=== PATIENT | male | born 1995 ===

== ENCOUNTER 2018-01-02 09:54 | Emergency (ER) | payer OTHER ==
[2018-01-02] MEDS ORDERED: NS 0.9% 1000 ML* 1,000 ML IV ONE (10:23)
[2018-01-02 10:35] LABS: ABS Basophils 0 10^3/ul (0-0.2); ABS Eosinophils 0.2 10^3/ul (0-0.6); ABS Lymphocytes 1.6 10^3/ul (1.0-4.8); ABS Monocytes 0.6 10^3/ul (0-0.8); ABS Nucleated RBC 0 10^3/ul; Eosinophil % 3.4 % (0-6); Hematocrit 40 % (42-52); Hemoglobin 13.6 g/dl (14.0-18.0); Mean Corpuscular HGB Conc 34 g/dl (31-36); Mean Corpuscular Hemoglobin 31 pg (27-31); Mean Corpuscular Volume 90 fL (80-94); Mean Platelet Volume 8.1 um3 (7.4-10.4); Nucleated Red Blood Cells % 0.1; Platelet Count 192 10^3/ul (150-450); Red Blood Count 4.39 10^6/ul (4.0-5.4); Red Cell Distribution Width 13 % (10.5-15); White Blood Count 5.4 10^3/ul (3.5-10.8)
[2018-01-02 10:43] LABS: INR 0.98 (0.77-1.02)
[2018-01-02 10:54] LABS: EGFR Non-African American 101.3 (>60)
[2018-01-02] MEDS ORDERED: Iohexol 300* (CONTRAST) 10 ML SDV IV ONE (11:08)
--- NOTE | 2018-01-02 12:00 | RAD ---
INDICATION: Abdominal pain. Acute appendicitis COMPARISON: None TECHNIQUE: Axial source images were obtained from the hemidiaphragms to the symphysis pubis following administration of oral and intravenous contrast. 100 mL Omnipaque 300 was utilized. Coronal and sagittal reconstructed images were acquired. Lung bases: The lung bases are clear. Liver: The liver is normal in size. There are no masses. There is no ductal dilatation. Gallbladder: There are no calcified gallstones. There is no evidence of wall thickening or pericholecystic fluid. Spleen: The spleen is normal in size. There are no masses. Pancreas: There is no focal pancreatic mass or ductal dilatation. Adrenal glands: There is no evidence of adrenal mass. Kidneys: The kidneys are normal in size and position. There are prompt nephrograms and there is prompt excretion bilaterally. There are no renal parenchymal masses. There is no evidence of nephrolithiasis. Adenopathy: There is no evidence of adenopathy by size criteria. Fluid collections: There are no free or localized fluid collections. Vessels:There are no significant atherosclerotic changes involving the aorta. There is no focal aneurysm. The iliac vessels are normal in caliber. The IVC appears normal. GI tract: The upper GI tract to include the terminal ileum is normal. The ileocecal valve is normal. There is limited evaluation of the appendix but there are no CT abnormalities. The colon appears abnormal. There is a short segment of mural thickening involving the nadiya ascending colon and there is long segment mural thickening of the descending colon. Consider infectious and inflammatory colitides. Pelvic organs: The prostate and seminal vesicles appear normal Bladder: There are no bladder masses. Abdominal and pelvic soft tissues: The extraperitoneal abdominal and pelvic soft tissues appear normal.. Osseous structures: There are no acute osseous findings. Other: None IMPRESSION: NO CT FINDINGS SPECIFIC FOR ACUTE APPENDICITIS. SUGGEST SURGICAL REFERRAL IF THIS REMAINS A DIAGNOSTIC CONSIDERATION. ABNORMAL APPEARANCE OF THE COLON WITH AREAS OF LONG SEGMENT MURAL THICKENING. CONSIDER INFECTIOUS OR INFLAMMATORY COLITIS.
[2018-01-02 12:29] LABS: Urine Appearance Clear; Urine Blood Negative (Negative); Urine Color Yellow; Urine Ketones Negative (Negative); Urine Protein Negative (Negative); Urine Specific Gravity 1.021 (1.010-1.030); Urine Urobilinogen Negative (Negative)
[2018-01-02 12:51] VITALS: BP 114/63
[2018-01-02] MEDS ORDERED: Omeprazole CAP* 20 MG PO ONE (13:09)
--- NOTE | 2018-01-02 14:24 | ED ---
Benny Estrella Gabriel, scribed for Shankar Stone on 01/02/18 at 1016 . Abdominal Pain/Male - HPI Summary HPI Summary: This patient is a 22 year old M presenting to [facility] accompanied by his partner with a chief complaint of ABD pain that began at 0830 this morning. The patient rates the pain 5/10 in severity. Pt woke up at 0830 was constipated but strained , left the bathroom, and a short time after other symptoms began. Patient reports light headedness, green diarrhea, and intermittent nausea. Patient denies fever. - History of Current Complaint Chief Complaint: EDAbdPain Stated Complaint: ABD PAIN Time Seen by Provider: 01/02/18 10:00 Hx Obtained From: Patient Onset/Duration: Lasting Hours, Still Present Timing: Constant, Intermittent Severity Initially: Moderate Severity Currently: Moderate Pain Intensity: 5 Pain Scale Used: 0-10 Numeric Location: Diffuse Radiates: No Associated Signs And Symptoms: Positive: Constipation, Nausea, Diarrhea. Negative: Fever - Allergies/Home Medications Allergies/Adverse Reactions: Allergies Allergy/AdvReac Type Severity Reaction Status Date / Time No Known Allergies Allergy Verified 01/02/18 09:57 Home Medications: Home Medications Famotidine TAB* [Pepcid 20 MG TAB*] 20 mg PO DAILY 01/02/18 [History Confirmed 01/02/18] PMH/Surg Hx/FS Hx/Imm Hx Cardiovascular History: Denies: Hx Myocardial Infarction, Hx Pacemaker/ICD, Hx Peripheral Vascular Disease, Hx Supraventricular Ventricular Tachycardia Respiratory History: Denies: Hx Chronic Obstructive Pulmonary Disease (COPD) GI History: Denies: Hx Crohn's Disease, Hx Diverticulosis, Hx Gall Bladder Disease, Hx Gastroesophageal Reflux Disease History: Denies: Hx Acute Renal Failure Sensory History: Denies: Hx Eye Injury Neurological History: Denies: Hx CVA, Hx Dementia Psychiatric History: Denies: Hx Attention Deficit Hyperactivity Disorder Infectious Disease History: No Infectious Disease History: Denies: Traveled Outside the [place] in Last 30 Days - Family History Known Family History: Positive: Diabetes Negative: Seizure Disorder - Social History Occupation: Student Lives: Dormitory/Roommates Alcohol Use: Occasionally Substance Use Type: Reports: None Smoking Status (MU): Never Smoked Tobacco Review of Systems Negative: Fever Gastrointestinal: Other - constipated Positive: Abdominal Pain, Diarrhea, Nausea Neurological: Other - light headedness All Other Systems Reviewed And Are Negative: Yes Physical Exam - Summary Physical Exam Summary: Appearance: Well appearing, no pain distress Skin: warm, dry, reflects adequate perfusion Head/face: normal Eyes: EOMI, ADDY ENT: normal Neck: supple, non-tender Respiratory: CTA, breath sounds present Cardiovascular: RRR, pulses symmetrical Abdomen: TTP in LLQ, RRQ, and periumbilicus. Bowel: present Musculoskeletal: normal, strength/ROM intact Neuro: normal, sensory motor intact, A&Ox3 Triage Information Reviewed: Yes Vital Signs On Initial Exam: Initial Vitals Temp Pulse Resp BP Pulse Ox 98 F 76 16 132/101 100 01/02/18 09:57 01/02/18 09:57 01/02/18 09:57 01/02/18 09:57 01/02/18 09:57 Vital Signs Reviewed: Yes Diagnostics - Vital Signs Vital Signs Temp Pulse Resp BP Pulse Ox 01/02/18 09:57 98 F 76 16 132/101 100 - Laboratory Lab Results: Lab Results 01/02/18 01/02/18 01/02/18 Range/Units 10:27 10:27 10:27 WBC 5.4 (3.5-10.8) 10^3/ul RBC 4.39 (4.0-5.4) 10^6/ul Hgb 13.6 L (14.0-18.0) g/dl Hct 40 L (42-52) % MCV 90 (80-94) fL MCH 31 (27-31) pg MCHC 34 (31-36) g/dl RDW 13 (10.5-15) % Plt Count 192 (150-450) 10^3/ul MPV 8.1 (7.4-10.4) um3 Neut % (Auto) 56.5 (38-83) % Lymph % (Auto) 29.0 (25-47) % [place] % (Auto) 10.7 H (0-7) % Eos % (Auto) 3.4 (0-6) % Baso % (Auto) 0.4 (0-2) % Absolute Neuts (auto) 3.0 (1.5-7.7) 10^3/ul Absolute Lymphs (auto) 1.6 (1.0-4.8) 10^3/ul Absolute Monos (auto) 0.6 (0-0.8) 10^3/ul Absolute Eos (auto) 0.2 (0-0.6) 10^3/ul Absolute Basos (auto) 0 (0-0.2) 10^3/ul Absolute Nucleated RBC 0 10^3/ul Nucleated RBC % 0.1 INR (Anticoag Therapy) 0.98 (0.77-1.02) APTT 31.5 (26.0-36.3) seconds Sodium 138 L (139-145) mmol/L Potassium 3.5 (3.5-5.0) mmol/L Chloride 104 (101-111) mmol/L Carbon Dioxide 27 (22-32) mmol/L Anion Gap 7 (2-11) mmol/L BUN 15 (6-24) mg/dL Creatinine 0.94 (0.67-1.17) mg/dL Est GFR ( Amer) 130.3 (>60) Est GFR (Non-Af Amer) 101.3 (>60) BUN/Creatinine Ratio 16.0 (8-20) Glucose 102 H (70-100) mg/dL Lactic Acid (0.5-2.0) mmol/L Calcium 9.2 (8.6-10.3) mg/dL Total Bilirubin 0.60 (0.2-1.0) mg/dL AST 18 (13-39) U/L ALT 9 (7-52) U/L Alkaline Phosphatase 52 (34-104) U/L Total Protein 6.7 (6.4-8.9) g/dL Albumin 4.1 (3.2-5.2) g/dL Globulin 2.6 (2-4) g/dL Albumin/Globulin Ratio 1.6 (1-3) Lipase 10 L (11.0-82.0) U/L Urine Color Urine Appearance Urine pH (5-9) Ur Specific Hope (1.010-1.030) Urine Protein (Negative) Urine Ketones (Negative) Urine Blood (Negative) Urine Nitrate (Negative) Urine Bilirubin (Negative) Urine Urobilinogen (Negative) Ur Leukocyte Esterase (Negative) Urine Glucose (Negative) 01/02/18 01/02/18 Range/Units 10:27 12:20 WBC (3.5-10.8) 10^3/ul RBC (4.0-5.4) 10^6/ul Hgb (14.0-18.0) g/dl Hct (42-52) % MCV (80-94) fL MCH (27-31) pg MCHC (31-36) g/dl RDW (10.5-15) % Plt Count (150-450) 10^3/ul MPV (7.4-10.4) um3 Neut % (Auto) (38-83) % Lymph % (Auto) (25-47) % [place] % (Auto) (0-7) % Eos % (Auto) (0-6) % Baso % (Auto) (0-2) % Absolute Neuts (auto) (1.5-7.7) 10^3/ul Absolute Lymphs (auto) (1.0-4.8) 10^3/ul Absolute Monos (auto) (0-0.8) 10^3/ul Absolute Eos (auto) (0-0.6) 10^3/ul Absolute Basos (auto) (0-0.2) 10^3/ul Absolute Nucleated RBC 10^3/ul Nucleated RBC % INR (Anticoag Therapy) (0.77-1.02) APTT (26.0-36.3) seconds Sodium (139-145) mmol/L Potassium (3.5-5.0) mmol/L Chloride (101-111) mmol/L Carbon Dioxide (22-32) mmol/L Anion Gap (2-11) mmol/L BUN (6-24) mg/dL Creatinine (0.67-1.17) mg/dL Est GFR ( Amer) (>60) Est GFR (Non-Af Amer) (>60) BUN/Creatinine Ratio (8-20) Glucose (70-100) mg/dL Lactic Acid 0.7 (0.5-2.0) mmol/L Calcium (8.6-10.3) mg/dL Total Bilirubin (0.2-1.0) mg/dL AST (13-39) U/L ALT (7-52) U/L Alkaline Phosphatase (34-104) U/L Total Protein (6.4-8.9) g/dL Albumin (3.2-5.2) g/dL Globulin (2-4) g/dL Albumin/Globulin Ratio (1-3) Lipase (11.0-82.0) U/L Urine Color Yellow Urine Appearance Clear Urine pH 6.0 (5-9) Ur Specific Hope 1.021 (1.010-1.030) Urine Protein Negative (Negative) Urine Ketones Negative (Negative) Urine Blood Negative (Negative) Urine Nitrate Negative (Negative) Urine Bilirubin Negative (Negative) Urine Urobilinogen Negative (Negative) Ur Leukocyte Esterase Negative (Negative) Urine Glucose Negative (Negative) Result Diagrams: 01/02/18 10:27 01/02/18 10:27 Lab Statement: Any lab studies that have been ordered have been reviewed, and results considered in the medical decision making process. - CT CT ABD/Pelvis CT Interpretation Completed By: Radiologist - NO CT FINDINGS SPECIFIC FOR ACUTE APPENDICITIS. SUGGEST SURGICAL REFERRAL IF THIS REMAINS A DIAGNOSTIC CONSIDERATION. ABNORMAL APPEARANCE OF THE COLON WITH AREAS OF LONG SEGMENT MURAL THICKENING. CONSIDER INFECTIOUS OR INFLAMMATORY COLITIS. ED physician has reviewed this radiology report. Abdominal Pain Fem Course/Dx - Course Assessment/Plan: This patient is a 22 year old M presenting to [facility] accompanied by his partner with a chief complaint of ABD pain that began at 0830 this morning. The patient rates the pain 5/10 in severity. Pt woke up at 0830 was constipated but strained, left the bathroom, and a short time after other symptoms began. Patient reports light headedness, green diarrhea, and intermittent nausea. Patient denies fever. CT ABD/Pelvis reveals, per radiologist, NO CT FINDINGS SPECIFIC FOR ACUTE APPENDICITIS. SUGGEST SURGICAL REFERRAL IF THIS REMAINS. A DIAGNOSTIC CONSIDERATION. ABNORMAL APPEARANCE OF THE COLON WITH AREAS OF LONG SEGMENT MURAL THICKENING. CONSIDER. INFECTIOUS OR INFLAMMATORY COLITIS. Blood work and UA obtained. In the ED course the patient was given IV fluids and prilosec. Patient will be discharged with prescription for protonix and follow up from [facility]. The patient is agreeable with this plan. - Diagnoses Differential Diagnosis/HQI/PQRI: Appendicitis, Constipation, Ureteral Stone, Urinary Tract Infection Provider Diagnoses: Abdominal pain, Diarrhea Discharge - Sign-Out/Discharge Documenting (check all that apply): Discharge/Admit/Transfer - Discharge Plan Condition: Stable Disposition: HOME Prescriptions: Pantoprazole TAB (NF) [Protonix TAB (NF)] 40 mg PO DAILY #15 tab Patient Education Materials: Acute Diarrhea (ED), Abdominal Pain (ED) Referrals: [facility] - Shawn ROTH [Medical Doctor] - 3 Days Additional Instructions: RETURN TO THE ER FOR ANY NEW OR WORSENING SYMPTOMS - Billing Disposition and Condition Condition: STABLE Disposition: HOME The documentation as recorded by the Benny salgado Gabriel accurately reflects the service I personally performed and the decisions made by , Shankar Stone.
== END 2018-01-02 13:19 | disposition home or self-care (01) ==
LOC: ED 09:54
DX: R10.9 Unspecified abdominal pain (principal); R19.7 Diarrhea, unspecified; K63.9 Disease of intestine, unspecified
CPT/HCPCS: 36415; 74177; 80053; 81003; 83605; 83690; 85025; 85610; 85730; 96360; 99283; A9270-GY; Q9967